=== PATIENT | female | born 1930 | race Caucasian/White ===

== ENCOUNTER → 2017-01-22 | Outpatient (CLI) | payer MEDICARE ==
[~2017-01-22] MED LIST: ASPI81TA83 OR; FERR325T OR; MAGN500T2 OR; MECL12.5 OR; MECL25TA2 OR; METO25TA2 OR; PREV15CA OR; VIT D 2000; VIT D 2000 PO; VITA100T OR; VITA500C OR; evista
--- NOTE | 2017-01-22 12:41 | REPMRS ---
Patient History The patient states she had a clinical breast exam in 11/2016. Patient is postmenopausal and is nulliparous. Family history of breast cancer in sister at age 70, colorectal cancer in sister at age 78, breast cancer in sister at age 60, and breast cancer in maternal aunt under age 50. Benign excisional biopsy of the right breast. Digital Woman Screen Mammo: January 22, 2017 - Exam #: [id number] Bilateral CC and MLO view(s) were taken. Technologist: Renuka Monte, Technologist Prior study comparison: January 06, 2016, digital woman screen mammo performed at [facility]. March 17, 2014, bilateral bilat screen digital mammo, performed at [facility] ([facility]). FINDINGS: There are scattered fibroglandular densities. There has been no change in the appearance of the mammogram from the prior studies. There is a mild amount of residual fibroglandular tissue which is fairly symmetric. There is no interval development of dominant mass, architectural distortion, or clustered microcalcification suggestive of malignancy. ASSESSMENT: BI-RADS/ACR category 1 mammogram. Negative. Recommendation Routine screening mammogram in 1 year (for women over age 40). This mammogram was interpreted with the aid of an FDA-approved computer-aided dectection system. Electronically Signed By: Hansel Cardona MD 01/22/17 [id number]
== END ==
LOC: M WHC 11:15
PROVIDERS: ATTEND Internal Medicine
DX: Z12.31 Encounter for screening mammogram for malignant neoplasm of breast (principal); Z78.0 Asymptomatic menopausal state; Z80.3 Family history of malignant neoplasm of breast; Z80.0 Family history of malignant neoplasm of digestive organs

== ENCOUNTER → 2018-11-08 | Outpatient (REF) | payer MEDICARE ==
[2018-11-08 18:33] LABS: PERCENT SATURATION 23.7 % (13.2-45.0)
== END ==
LOC: M LAB REF 17:00
PROVIDERS: ATTEND Internal Medicine
DX: D64.9 Anemia, unspecified (principal)